=== PATIENT | male | born 1985 | race Hispanic/Latino ===

== ENCOUNTER 2022-09-06 15:23 | Emergency (ER) | payer OTHER ==
[2022-09-06] MEDS ORDERED: Dexamethasone 4 MG TAB ONE (17:01)
[2022-09-06] MEDS ORDERED: Ketorolac Tromethamine 30 MG/ML VIAL ONE (17:01)
[2022-09-06] MEDS ORDERED: Bicillin LA 1.2 MILLION UNITS/2 ML SYRINGE ONE (17:02)
== END 2022-09-06 17:18 | disposition home or self-care (01) ==
LOC: EEVIPCON 15:23 → ERS 15:23
DX: J02.0 Streptococcal pharyngitis (principal); K65.1 Peritoneal abscess; I10 Essential (primary) hypertension
CPT/HCPCS: 96372; 99284; J0561; J1885; J8540